=== PATIENT | female | born 1995 | race Caucasian/White ===

== ENCOUNTER 2021-08-26 07:52 | Emergency (ER) | payer OTHER ==
[~2021-08-26] VITALS: Ht 154.9 cm; Wt 90.7 kg
--- NOTE | 2021-08-26 07:52 | NUR ---
EBEN ELAM VIA GURNEY TO BED 09.
--- NOTE | 2021-08-26 07:57 | NUR ---
ERMD AT BEDSIDE.
[2021-08-26] MEDS ORDERED: KETOROLAC 30 MG/ML VIAL IM ONE (08:00)
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
[2021-08-26] MEDS ORDERED: levETIRAcetam 500 MG TAB PO ONE (08:05)
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
[2021-08-26 08:32] VITALS: BP 108/70
[2021-08-26 09:41] LABS: APPEARANCE,URINE CLEAR (CLEAR); BILIRUBIN,URINE NEGATIVE (NEGATIVE); BLOOD, URINE NEGATIVE (NEGATIVE); COLOR,URINE YELLOW (YELLOW); LEUKOCYTE ESTERASE ,URINE NEGATIVE (NEGATIVE); NITRITE, URINE NEGATIVE (NEGATIVE); UGLUCOSE NEGATIVE (NEGATIVE)
[2021-08-26 09:58] LABS: BASOPHILS % (AUTO) 0.4 % (0.0-2.0); EOSINOPHILS # (AUTO) 0.1 K/uL (0-0.4); EOSINOPHILS % (AUTO) 0.7 % (0.0-4.0); HEMATOCRIT 40.8 % (36-48); HEMOGLOBIN 13.5 g/dL (12.0-16.0); LYMPHOCYTES # (AUTO) 1.8 K/uL (2.5-16.5); LYMPHOCYTES % (AUTO) 13.6 % (20.5-51.1); MEAN CORPUSCULAR HEMOGLOBIN 28 pg (27-31); MEAN CORPUSCULAR HGB CONC 33 g/dL (33-37); MEAN CORPUSCULAR VOLUME 86.3 fL (80-94); MONOCYTES # (AUTO) 0.7 K/uL (0.8-1.0); MONOCYTES % (AUTO) 5.6 % (1.7-9.3); NEUTROPHILS # (AUTO) 10.4 K/uL (1.8-7.7); NEUTROPHILS % (AUTO) 79.7 % (42.2-75.2); PLATELET COUNT (AUTO) 282 K/uL (140-450); RED BLOOD CELL COUNT(AUTO) 4.73 MIL/uL (4.20-5.40); RED CELL DISTRIBUTION WIDTH 13.2 % (11.6-13.7)
[2021-08-26 10:20] LABS: ALBUMIN 3.8 g/dL (3.4-5.0); ANION GAP 8.5 (8-16); CARBON DIOXIDE 29.8 mmol/L (21-32); CREATININE 0.7 mg/dL (0.6-1.3); MAGNESIUM 1.7 mg/dL (1.8-2.4); PHOSPHORUS 3.1 mg/dL (2.5-4.9); POTASSIUM 4.3 mmol/L (3.5-5.1); TOTAL BILIRUBIN 0.3 mg/dL (0.0-1.0)
--- NOTE | 2021-08-26 10:57 | NUR ---
PT AT REST AND SLEEPING
--- NOTE | 2021-08-26 12:20 | NUR ---
IV removed, catheter intact and site benign. Applied folded 4x4 gauze and tape to stop bleeding.
--- NOTE | 2021-08-26 12:21 | NUR ---
pt ambulated to bathroom at this time, even and steady gait
--- NOTE | 2021-08-26 12:37 | NUR ---
Patient discharged with v/s stable. Written and verbal after care instructions given and explained. Patient verbalized understanding. Ambulatory with steady gait. All questions addressed prior to discharge. Advised to follow up with PMD.
[2021-08-26 12:38] VITALS: BP 109/73
--- NOTE | 2021-08-26 13:28 | NUR ---
The patient's care was reviewed and supervised by Paige Almanzar, RN, RN.
== END 2021-08-26 12:37 | disposition home or self-care (01) ==
LOC: MED 07:52
DX: R56.9 Unspecified convulsions (principal)
CPT/HCPCS: 36415; 80053; 81003; 81025; 83735; 84100; 84703; 85025; 99283

== ENCOUNTER 2022-03-28 21:44 | Emergency (ER) | payer OTHER ==
[~2022-03-28] VITALS: Ht 154.9 cm; Wt 117.0 kg
--- NOTE | 2022-03-28 21:48 | NUR ---
Dr. Allred examining patient.
[2022-03-28 21:52] VITALS: BP 140/90
--- NOTE | 2022-03-28 21:54 | NUR ---
Patient taken to chair C.
[2022-03-28] MEDS ORDERED: levETIRAcetam 1,000 MG in NACL 0.9% 100 ML IV ONE (22:00)
[2022-03-28 22:05] VITALS: BP 119/63
[2022-03-28 22:32] LABS: BASOPHILS # (AUTO) 0.1 K/uL (0.00-0.22); BASOPHILS % (AUTO) 0.8 % (0.0-2.0); EOSINOPHILS # (AUTO) 0.1 K/uL (0-0.4); EOSINOPHILS % (AUTO) 1.5 % (0.0-4.0); HEMATOCRIT 43.4 % (36-48); HEMOGLOBIN 14.4 g/dL (12.0-16.0); LYMPHOCYTES # (AUTO) 2.1 K/uL (2.5-16.5); LYMPHOCYTES % (AUTO) 25.1 % (20.5-51.1); MEAN CORPUSCULAR HEMOGLOBIN 29 pg (27-31); MEAN CORPUSCULAR HGB CONC 33 g/dL (33-37); MEAN CORPUSCULAR VOLUME 86.8 fL (80-94); MONOCYTES # (AUTO) 0.7 K/uL (0.8-1.0); MONOCYTES % (AUTO) 8.1 % (1.7-9.3); NEUTROPHILS # (AUTO) 5.3 K/uL (1.8-7.7); NEUTROPHILS % (AUTO) 64.5 % (42.2-75.2); PLATELET COUNT (AUTO) 269 K/uL (140-450); RED CELL DISTRIBUTION WIDTH 13.3 % (11.6-13.7); WHITE BLOOD COUNT (AUTO) 8.2 K/uL (4.8-10.8)
[2022-03-28] MEDS ORDERED: levETIRAcetam 100 MG/ML VIAL IV ONE (22:32)
[2022-03-28] MEDS ORDERED: KEP500 PO (23:08)
--- NOTE | 2022-03-28 23:12 | NUR ---
Patient discharged with v/s stable. Written and verbal after care instructions given and explained BY DR BYERS Patient alert, oriented and verbalized understanding of instructions. Ambulatory with steady gait. All questions addressed prior to discharge. ID band removed. Patient advised to follow up with PMD. Rx of KEPPRA given. Patient educated on indication of medication including possible reaction and side effects. Opportunity to ask questions provided and answered.
[2022-03-28 23:32] LABS: POTASSIUM 4.2 mmol/L (3.5-5.1)
[2022-03-28 23:33] LABS: ANION GAP 13.3 (8-16); CARBON DIOXIDE 28.9 mmol/L (21-32); CREATININE 0.8 mg/dL (0.6-1.3); TOTAL BILIRUBIN 0.8 mg/dL (0.0-1.0)
[2022-03-28 23:34] LABS: ALBUMIN 4.2 g/dL (3.4-5.0)
[2022-03-28 23:46] LABS: APPEARANCE,URINE CLEAR (CLEAR); BILIRUBIN,URINE NEGATIVE (NEGATIVE); BLOOD, URINE 3+ (NEGATIVE); COLOR,URINE YELLOW (YELLOW); LEUKOCYTE ESTERASE ,URINE NEGATIVE (NEGATIVE); NITRITE, URINE POSITIVE (NEGATIVE); UGLUCOSE NEGATIVE (NEGATIVE)
[2022-03-29] LABS: BARBITURATE, URINE NEGATIVE ng/ml (NEG <=200); BENZODIAZEPINE, URINE NEGATIVE ng/mL (NEG <=200); CANNABINOID, URINE NEGATIVE ng/mL (NEG <=50); COCAINE, URINE NEGATIVE ng/mL (NEG <=300); OPIATE, URINE NEGATIVE ng/mL (NEG <=2000); PHENCYCLIDINE SCREEN,URINE NEGATIVE ng/mL (NEG <=25)
[2022-03-29 00:02] LABS: RBC,URINE >20 (MANY) /HPF (0-5); WBC,URINE 0-5 /HPF (0-5)
== END 2022-03-28 23:17 | disposition home or self-care (01) ==
LOC: MED 21:44
DX: R56.9 Unspecified convulsions (principal); Z79.899 Other long term (current) drug therapy
CPT/HCPCS: 36415; 80053; 80305; 81001; 85025; 87086; 96365; 99284; J1953